=== PATIENT | female | born 1970 | race Caucasian/White ===

== ENCOUNTER 2019-10-06 12:43 | Outpatient (CLI) | payer BC, SELFPAY ==
--- NOTE | ~2019-10-06 | XR_ITS ---
EXAMINATION: XR wrist LT min 3V EXAM DATE: 10/06/2019 13:09 INDICATION: Initial encounter following injury, with pain of the left wrist. TECHNIQUE: Frontal, 2 oblique, lateral projections left wrist. There is no prior study for comparis on. FINDINGS: Acute comminuted closed posttraumatic fracture through the left radial distal metaphysis e xtending into the radiocarpal joint. There is mild volar displacement of the main fracture fragment, carpus. There is overlying soft tissue swelling. The ulnar styloid is intact. Carpal bones unremark able. IMPRESSION: Left radial distal metaphyseal fractures into radiocarpal joint. Mild volar displacement . Reviewed, dictated and finalized at location B. IMPRESSION: Left radial distal metaphyseal fractures into radiocarpal joint. M ild volar displacement.
== END 2019-10-06 12:44 | disposition home or self-care (01) ==
LOC: ANHIMG 12:50
PROVIDERS: PCP Family Medicine; Visit Provider Physician Assistant
DX: S52.502A Unspecified fracture of the lower end of left radius, initial encounter for closed fracture (principal)
CPT/HCPCS: 73110

== ENCOUNTER 2019-10-09 04:16 | Day surgery (SDC) | payer BC, SELFPAY ==
[2019-10-08 09:59] VITALS: BMI 23.6
[2019-10-09] VITALS (10 sets, daily range): BP systolic 106–135; BP diastolic 62–76; PULSE 52–67; RESP 10–18; TEMP 36.2–38; O2SAT 96–100
--- NOTE | ~2019-10-09 | XR_ITS ---
EXAMINATION: XR surgery orthopedic DATE: 10/09/2019 15:35 INDICATION: ORIF left wrist fracture TECHNIQUE: 3 fluoroscopic spot images of the left wrist were obtained during procedure performed by Jenny Ness. Radiologist was not present for the imaging or procedure. The amount of fluoroscopy time used during this procedure was 0.3 minutes. COMPARISON: 10/07/2019 FINDINGS: Interval reduction and internal fixation with volar T plate and screws of a previous noted mildly com minuted fractures of the distal left radius. No definitive intra-articular extension of the fracture. Alignment post fixation appears essentially anatomic. No other fractures identified. Normal joint sp karsten at the left wrist and carpus. IMPRESSION: 1. Essentially anatomic alignment post internal fixation of a comminuted distal left radial fracture. See procedure note for further detail. Reviewed, dictated and finalized at location A.
--- NOTE | 2019-10-09 07:19 | WPDHPUPDATE1 ---
History and Physical Update Update Date/Time: 10/09/19 07:19 History and Physical has been reviewed, including an updated exam of the patient. There are NO changes in the patient's condition. Risks, benefits, and alternatives have been discussed and questions answered. Patient agrees to proceed with procedure.
[2019-10-09] MEDS: IBUPROFEN IV 800 MG/200 ML 800 MG/200 ML BAG 400 MG IVPB (13:30)
[2019-10-09] MEDS: LACTATED RINGERS 1,000 ML 30 ML IV CONT ×2 (13:30→15:53)
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
[2019-10-09] MEDS: ceFAZolin 2 GM/D5W 50 ML 2 GM/50 ML BAG IVPB (14:33)
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
== END 2019-10-09 17:50 | disposition home or self-care (01) ==
PROVIDERS: PCP Family Medicine; Visit Provider Orthopaedic Surgery
PROC: (CPT 25575; principal; 2019-10-09 15:00)
DX: S52.562A Barton's fracture of left radius, initial encounter for closed fracture (principal); V19.9XXA Pedal cyclist (driver) (passenger) injured in unspecified traffic accident, initial encounter
CPT/HCPCS: 25607; A9270; C1713; J0690; J1200; J1741; J2250; J2405; J2704; J3010; J7120

== ENCOUNTER 2024-06-02 15:53 | Outpatient (CLI) | payer BC, SELFPAY ==
--- NOTE | ~2024-06-02 | US_ITS ---
EXAM: Focused ultrasound examination of the soft tissues of the left axilla HISTORY: R22.2 - Localized swelling, mass and lump, trunk TECHNIQUE: Sonographic evaluation of the soft tissues of the left upper back were performed assessing grayscale appearance and color Doppler flow. COMPARISON: Upper back none. FINDINGS: Sonographic evaluation of the soft tissues of the left upper back demonstrate a well-circumscribed fo cus of fat attenuation measuring 7.3 x 1.7 x 10.2 cm, consistent with a lipoma. Sonographic evaluation of the remainder of the soft tissues of the left upper back demonstrate benign fibrofatty and fibromuscular elements without a cystic or solid lesion of concern. IMPRESSION: Lipoma within the region of palpable concern. Reviewed, dictated and finalized at location A. H LEADER
--- OUTSIDE RECORDS SUMMARY | 2024-06-02 18:22 | XMS_ITS | Encounter Summary ---
Author Organization [facility] Address [address] [place] [address] Care Team Providers Care Distribution Systems Superintendent Name Role Phone Joslyn Moreau MD Primary Care Provider [phone] Encounter Details Date Type Department Care Team (Latest Contact Info) Description 12/01/1999 Inpatient Historical HIS PATIENT IN A BED Kristina Peres MD [address] [facility] [address] [place] [address] Other specified indication for care or intervention related to labor and delivery, delivered (Primary Dx) Social History Tobacco Use Types Packs/Day Years Used Date Smoking Tobacco: Never Assessed Comments Unknown Sex and Gender Information Value Date Recorded Sex Assigned at Not on file 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
--- OUTSIDE RECORDS SUMMARY | 2024-06-02 18:22 | XMS_ITS | Encounter Summary ---
Author Organization [facility] Address 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
--- OUTSIDE RECORDS SUMMARY | 2024-06-02 18:22 | XMS_ITS | Clinical Summary ---
Author Organization 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 Gender Identity Not on file Sexual Orientation Not on file Plan of Treatment Health Maintenance Due Date Last Done Comments DTAP/TDAP/TD VACCINES (1 - Tdap) 06/13/1987 HEPATITIS B VACCINES (1 of 3 - 19+ 3-dose series) 06/13/1987 CERVICAL CANCER SCREENING 1998 BREAST CANCER SCREENING 2008 COLORECTAL SCREENING 2013 Colorectal Cancer Screening 2013 FIT-DNA Q 3 years 2013 FIT/FOBT Q 1 year 2013 Flex Sig/CT Colonography Q 5 years 2013 ZOSTER VACCINE (1 of 2) 2018 INFLUENZA VACCINE (#1) 2023 PNEUMOCOCCAL VACCINE 0-64 YEARS Aged Out No longer eligible based on patient's age to complete this topic Insurance BCBS BLUE ACCESS/TRUE BLUE PPO Care Teams Gravity Prospecting Operator Relationship Specialty Start Date End Date Joslyn Moreau MD [address] [place] [address] PCP - General Family Practice 10/29/18
--- OUTSIDE RECORDS SUMMARY | 2024-06-02 18:22 | XMS_ITS | Continuity of Care Document ---
Author Organization [facility] Address [address] [place] [address] Phone Care Team Providers Care Alley Tender Name Role Phone Randall SPENCE, Gloria Unavailable Unavailable Allergies, Adverse Reactions, Alerts Substance Reaction Status Criticality Penicillins Active No Information Medications Medication Instructions Dosage Effective Dates (start - stop) Status Comments Blink eye drops (unknown strength) Not Available - Active ADVIL (unknown strength) take 1 tablet by oral route every 6 hours as needed with food Not Available - Active Zyrtec (unknown strength) Not Available - Active DAILY VITAMIN FORMULA (unknown strength) take 1 tablet by oral route every day with food Not Available - Active Calcium (unknown strength) Not Available - Active Procedures Procedure Date EYE EXAM & TREATMENT REFRACTION Comp cont lens eval EYE EXAM & TREATMENT REFRACTION Comp cont lens eval EYE EXAM & TREATMENT REFRACTION Comp cont lens eval EYE EXAM [facility] REFRACTION Comp cont lens eval EYE EXAM & TREATMENT REFRACTION Comp cont lens eval EYE EXAM & TREATMENT REFRACTION Comp cont lens eval EYE EXAM & TREATMENT REFRACTION Comp cont lens eval EYE EXAM & TREATMENT REFRACTION Comp cont lens eval OFFICE/OUTPATIENT VISIT, EST REFRACTION SPECIAL EYE EXAM, SUBSEQUENT RIGHT EYE J SPECIAL EYE EXAM, SUBSEQUENT LEFT EYE J Comp cont lens eval OFFICE/OUTPATIENT VISIT, EST OFFICE/OUTPATIENT VISIT, EST REFRACTION Comp cont lens eval OFFICE/OUTPATIENT VISIT, EST REFRACTION OFFICE/OUTPATIENT VISIT, EST REFRACTION OFFICE/OUTPATIENT VISIT, EST OFFICE/OUTPATIENT VISIT, EST Advance Directives Directive Yes / No Effective Date File Name No Information Encounters Encounter Description Practice Location Reason(s) For Visit Diagnoses Date Provider Providers Copied on Encounter [facility], [address] [place] [address], [id number], [place] tel:[phone] OPH CONSULT APOLINAR STEPHEN routine exam (chief complaint) Encounter for exam of eyeMyopia, bilateral 4 Randall Castro. [address], [address], [place], [address], [place]. tel:[phone] Referring Provider: Gloria De Jesus, [address], [place], [address]. tel:[phone] [facility], [address] [place] [address], [place], [place], [id number], [place] tel:[phone] [facility] CONSULT APOLINAR STEPHEN Dry Eye (chief complaint) Myopia, bilateralEnco unter for exam of eye 3 Randall Castro. [address], [address], [place], [address], [place]. tel:[phone] Referring Provider: Joslyn Moreau MD S, [address] [place], [address]. tel:[phone] [facility], [address] [place] [address], [place], [place], [id number], [place] tel:[phone] OPH CONSULT APOLINAR STEPHEN dry eyes (chief complaint) Myopia, bilateralEnco unter for exam of eyeKeratoconj unct sicca, not specified as Sjogren's, bilateral David-0 2 Pereira Gloria. [address], [address], [place], [address], [place]. tel:[phone] Referring Provider: Joslyn Moreau MD S, [address] [place], [address]. tel:[phone] [facility], [address] [place] [address], [id number], [place] tel:[phone] [facility] Myopia, bilateralEnco unter for exam of eye Jun- 1 Pereira Gloria. [address], [address], [place], [address], [place]. tel:[phone] Referring Provider: Joslyn Moreau MD S, [address] [place], [address]. tel:[phone] [facility], [address] [place] [address], [id number], [place] tel:[phone] OPH CONSULT APOLINAR STEPHEN myopia (chief complaint)f loaters (chief complaint)d ry eye (chief complaint) Encounter for exam of eyeMyopia, bilateral Sep- 0 Pereira Gloria. [address], [address], [place], [address], [place]. tel:[phone] Referring Provider: Joslyn Moreau MD S, [address] [place], [address]. tel:[phone] [facility], [address] [place] [address], [id number], [place] tel:[phone] OPH CONSULT APOLINAR STEPHEN dryness (chief complaint) Encounter for exam of eyeMyopia, bilateral Sep- 9 Pereira Gloria. [address], [address], [place], [address], [place]. tel:[phone] Referring Provider: Gloria De Jesus, [address], [place], [address]. tel:[phone] [facility], [address] [place] [address], [id number], [place] tel:[phone] OPH CONSULT APOLINAR STEPHEN routine exam (chief complaint) Encounter for exam of eyeMyopia, bilateral Randall Castro. [address], [address], [place], [address], [place]. tel:[phone] Referring Provider: Gloria De Jesus, [address], [place], [address]. tel:[phone] [facility], [address] [place] [address], [id number], [place] tel:[phone] OPH CONSULT APOLINAR STEPHEN myopia (chief complaint) Acute atopic conjunctiviti s, bilateralOthe r vitreous opacities, bilateralOthe r chorioretinal scars, right eyeMyopia, bilateralBila teral keratoconjunc tivitis sicca, not specified as Sjogren's 7 Randall Castro. [address], [address], [place], [address], [place]. tel:[phone] Referring Provider: Gloria De Jesus, [address], [place], [address]. tel:[phone] OFFICE/OUTPA TIENT VISIT, [facility], [address] [place] [address], [id number], [place] tel:[phone] OPH CONSULT APOLINAR STEPHEN blurry reading (chief complaint) Myopia, bilateralAcut e atopic conjunctiviti s, bilateralOthe r vitreous opacities, bilateralOthe r chorioretinal scars, right eye 6 Randall Castro. [address], [address], [place], [address], [place]. tel:[phone] Referring Provider: Gloria De Jesus, [address], [place], [address]. tel:[phone] [facility], [address] [place] [address], [id number], [place] tel:[phone] OPH CONSULT APOLINAR STEPHEN blurry vision (chief complaint) No Information 5 Randall Castro. [address], [address], [place], [address], [place]. tel:[phone] Referring Provider: Gloria De Jesus, [address], [place], [address]. tel:[phone] OFFICE/OUTPA TIENT VISIT, [facility], [address] [place] [address], [id number], [place] tel:[phone] OPH CONSULT APOLINAR STEPHEN pain, redness, mattering (chief complaint) Pain in or around the eye 5 Lesa Baez. [address] [place] [address], [address], [place], [address], [place]. tel:[phone] Referring Provider: Nestor Lu, [address] [place] [address] [address], [place], [address]. tel:[phone] OFFICE/OUTPA TIENT VISIT, [facility], [address] [place] [address], [id number], [place] tel:[phone] Oph Consult [facility] Allergies (chief complaint)V ision doing well without complaints (chief complaint) Allergic conjunctiviti sMyopiaOther vitreous opacities 4 Randall Castro. [address], [address], [place], [address], [place]. tel:[phone] Referring Provider: Gloria De Jesus, [address], [place], [address]. tel:[phone] OFFICE/OUTPA TIENT VISIT, [facility], [address] [place] [address], [id number], [place] tel:[phone] Oph Consult [facility] decreased vision (chief complaint) Allergic conjunctiviti sAllergic conjunctiviti sRegular astigmatismOt her vitreous opacities 3 Randall Castro. [address], [address], [place], [address], [place]. tel:[phone] Referring Provider: Gloria De Jesus, [address], [place], [address]. tel:[phone] OFFICE/OUTPA TIENT VISIT, [facility], [address] [place] [address], [place], [place], [id number], [place] tel:[phone] OPH CONSULT APOLINAR STEPHEN itching (chief complaint) Allergic conjunctiviti sMyopia 2 Randall Castro. [address], [address], [place], [address], [place]. tel:[phone] Referring Provider: Gloria De Jesus, [address], [place], [address]. tel:[phone] OFFICE/OUTPA TIENT VISIT, [facility], [address] [place] [address], [id number], [place] tel:[phone] OPH CONSULT APOLINAR STEPHEN takes time to adjust to contacts when (chief complaint) Allergic conjunctiviti s 1 Cora Pereira. [address], [address], [place], [place], [id number], [place]. tel:[phone] OFFICE/OUTPA TIENT VISIT, [facility], [address] [place] [address], [id number], [place] tel:[phone] OPH CONSULT APOLINAR STEPHEN No Information 0 Cora Pereira. [address], [address], [place], [place], [id number], [place]. tel:[phone] [facility], [address] [place] [address], [place], [id number], [place] tel:[phone] OPH CONSULT APOLINAR STEPHEN No Information 201 0 Cora Pereira. [address], [address], [place], [place], [id number], [place]. tel:[phone] Family History Family Member Type Diagnosis Age At Onset Grandmother Problem (finding) Glaucoma Father Problem Hypertension Father Problem Glaucoma Payers Payer name Insurance type Covered republican ID Maikel grijalva(s) VSP CI [id number] Social History Type Description Quantity Date Captured Comments Alcohol Use Details No Caffeine Use Details 2 cups per day Tobacco Use Status Current non-smoker Smoking Status Never smoker Non-Smoking Tobacco Use Details : No Details Available : No Details Available Sex Female Vital Signs Date / Time: Height Weight BMI Pulse Rate Blood Pressure Temperature Respiratory Rate Body Surface Area Head Circumference BMI percentile Pulse Ox Inhaled Ox 12:48 PM 65.00 in 138.00 lbs 22.9 6 kg/m eter (2) Chief Complaint And Reason For Visit From encounter dated '11/09/2023 13:00'. routine exam (chief complaint). Description: The 53 year old female presents for evaluation of routine VSP examination, PT reports no changes to her VA OU for both distance and near, denies any othersignificant changes to her eyes. PT uses Toric daily CLS. PT also uses progressive glasses alternatively. PT is using Blink OU BID. Plan Of Treatment Date Type Action Status No Information History Of Present Illness Encounter Date Complaint History Of Prese nt Illness routine exam The 53 year old female presents for evaluation of routine VSP examination, PT reports no changes to her VA OU for both distance and near, denies any other significant changes to her eyes. PT uses Toric daily CLS. PT also uses progressive glasses alternatively. PT is using Blink OU BID. Dry Eye The 52 year old female presents for evaluation of Dry Eye. Vision seems stable. Distance and Near vision seems clear. Pt uses +1.50 OTC readers over contacts. Eyes are dry by end of day, takes out contacts. Otherwise eyes are comfortable. OD has 1 floater, notices when she is outside walking. Floater does not effect vision and has stayed consistent in shape, color, and size. Denies FOL, glare, and distortions. Pt is happy with current brand of contacts, My Day Torics. -Pt wants to know if Blink is the best drops for her to use? Using Blink BID OU dry eyes The 51 year old female presents for evaluation of dry eyes. Pt states eyes are still dry, using blink BID Ou. Pt wears daily cls. Pt states no vision changes. Pt wants updated rx. ins. VSP Achy Eyes The 50 year old female presents for evaluation of Achy Eyes in the right eye and left eye. It started about 2 month(s) ago. It affects VA not affected. The symptom is constant. The condition is unstable. Patient states she is having a hard time with her CL. She has been light sensitive, and her eyes just ache. The vision seems ok. No flashes or floaters. Headaches often. floaters The patient is p resent for evaluation of floaters in the right eye. Pt c/o black floaters OD. First noticed this Spring. Denies flashes myopia The 49 year old female presents for evaluation of myopia in the right eye and left eye. It started about 1 year(s) ago. Pt c/o difficulty with near and computer with contacts in but ok with rx glasses. Pt uses +1.50 OTC prn, c/o eye strain even with readers on.monovision - OD distance, OS near. dry eye The patient is p resent for evaluation of dry eye in the right eye and left eye. Pt c/o dryness after wearing contacts all day. Takes contacts out to improve symptoms. Pt does not use any gtts on a regular basis - has Pataday but states she forgets to use often. dryness The 48 year old female presents for evaluation of dryness in the right eye and left eye. It started about 6 month(s) ago. It occurs with no pattern. The condition is moderate. Pt does not use gtts. She removes her CLs when she feels dry and that helps. Pt removes her CLs nightly and replaces them biweekly. routine exam The 47 year old female presents for evaluation of routine exam in the right eye and left eye. Last exam was about 1 year(s) ago. The symptom is constant. The condition is stable. Pt reports vision and comfortable are stable with present cl's. Pt denies any dryness or discomfort OU. Disp q 2 weeks. Current pair a little over 1 week. Solution: complete care myopia The 46 year old female presents for evaluation of myopia in the right eye and left eye. Patient reports vision and ocular comfort are doing well. No flashes or floaters. See CL exam sheet for CL info blurry reading The 45 year old female presents for evaluation of blurry reading in the right eye and left eye. Reading gradually worse over the past year. Problem only with CL. MV CL OD dist, OS near. Progressives-va good OU.Uses pataday occasionally for comfort. Pt is very light sensitiveNeeds updated CL rx. blurry vision The 44 year old female presents for evaluation of blurry vision in the left eye. It started about 2 month(s) ago. It affects near vision. The symptom is frequent. The condition is limiting patient's ability to read. Pt states OS-near is having trouble focusing. Pt is happy with CL, but is needed +1.25 otc over her CL to read. pain, redness, mattering The 44 year old female presents for evaluation of pain, redness, mattering in the left eye. It started about 2 day(s) ago. The symptom is constant. The condition is unstable. States that a bug flew into OS sunday while she had CL in. Flushed OS out for about 10 mins. Used systane Gel last night for comfort. swelling has spread to LLL. D/C CL wear OS, Wearing CL OD only today Instructions Date Instruction Additional Infor mation Impression/Plan Related to Encou nter for exam of eye Impression/Plan Related to Myopi a, bilateral Impression/Plan Related to Myopi a, bilateral Impression/Plan Related to Encou nter for exam of eye Impression/Plan Related to Myopi a, bilateral Impression/Plan Related to Encou nter for exam of eye Impression/Plan Related to Kerat oconjunct sicca, not specified as Sjogren's, bilateral Impression/Plan Related to Myopi a, bilateral Impression/Plan Related to Encou nter for exam of eye Impression/Plan Related to Myopi a, bilateral Impression/Plan Related to Encou nter for exam of eye Impression/Plan Related to Encou nter for exam of eye Impression/Plan Related to Myopi a, bilateral Impression/Plan Related to Encou nter for exam of eye Impression/Plan Related to Myopi a, bilateral Follow up - RTO 1 ye ar for comp exam Related to Bilateral keratoconjunctivitis sicca, not specified as Sjogren's Impression/Plan - co ntinue pataday. will continue to observe. Related to Acute atopic conjunctivitis, bilateral Impression/Plan - Di scussed diagnosis in detail with patient. No treatment is required at this time. Will continue to observe condition and or symptoms. Call if VA worsens or sudden onset of doxens of floaters with flashes of light. Educational materials provided:Flashers/floaters. Related to Other vitreous opacities, bilateral Impression/Plan - St able. Will continue to observe. 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 Change to clearcare. possible solution sensitivity Related to Myopia, bilateral Impression/Plan - Di scussed diagnosis in detail with patient. Discussed treatment options with patient. Patient instructed to use artificial tears as needed. Will continue to observe condition and or symptoms.Change to clearcare for solution. Related to Bilateral keratoconjunctivitis sicca, not specified as Sjogren's Impression/Plan - Mo no vision stable. sees better with progressive. Discussed Duette progressives. Related to Myopia, bilateral Impression/Plan - co ntinue pataday. will continue to observe. Related to Acute atopic conjunctivitis, bilateral Impression/Plan - Di scussed diagnosis in detail with patient. No treatment is required at this time. Will continue to observe condition and or symptoms. Call if VA worsens or sudden onset of doxens of floaters with flashes of light. Educational materials provided:Flashers/floaters. Related to Other vitreous opacities, bilateral Follow up - RTO 1 ye ar for comp exam Impression/Plan - St able. Will continue to observe. 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 Related to Allergic conjunctivitis Allergic conjunctivi tis OU - Patient to continue Lastacaft as needed, will call if needing more. Related to Allergic conjunctivitis Myopia/Presbyopia, O U - trial cls trying mono vision, discussed duette progressive. patient will call to orderOCT readers prn Related to Myopia Other vitreous opaci ties Right - Discussed diagnosis in detail with patient. No treatment is required at this time. Discussed signs and symptoms of retinal detachment. Discussed signs and symptoms of PVD/floaters. Educational materials provided:Flashers/floaters. Related to Other vitreous opacities Allergic conjunctivi tis OU - Pt is currently taking Lastacaft, will call if needing more. Related to Allergic conjunctivitis Compound Myopic Asti gmatism OU - Discussed [place] vision etc - for distance and reading. CL and glasses. Advised pt of condition. Discussed benefits of CL and glass lens. Trials (Toric) given today for bi focals pt to call in 1 week pt may try [place] in future. let's move to toric for now- trials Related to Compound Myopic Astigmatism Other vitreous opaci ties OU - No treatment today. Related to Other vitreous opacities Myopia/Presbyopia, O U - OCT readers prn Related to Myopia - Return in 1 year f or Complete Exam, with Gloria Pereira OD. Related to Allergic Conjunctivitis Allergic Conjunctivi tis, OU - rx for Lastacaft given today. Related to Allergic Conjunctivitis Allergic Conjunctivi tis, OU - Change contact lens solution from Opti Free. Gave pt samples of Clear Care, Complete. Gave pt new rx for Lastacaft. Related to Allergic Conjunctivitis Assessments Type Assessment Date assessment Encounter for exam of eye impression Encounter for exam o f eye: Z01.00 Bilateral.Uses Blink PRN OU- ins did not cover any medication assessment Myopia, bilateral impression Myopia, bilateral: H 52.13. stable- mild mono vision working well so far
--- OUTSIDE RECORDS SUMMARY | 2024-06-02 18:22 | XMS_ITS | Encounter Summary ---
Author Organization [facility] Address 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
== END 2024-06-02 15:54 | disposition home or self-care (01) ==
PROVIDERS: PCP Family Medicine; Visit Provider Student in an Organized Health Care Education/Training Program
DX: D17.1 Benign lipomatous neoplasm of skin and subcutaneous tissue of trunk (principal)
CPT/HCPCS: 76604

== ENCOUNTER 2024-10-29 06:56 | Outpatient (CLI) | payer BC, SELFPAY ==
--- NOTE | ~2024-10-29 | XR_ITS ---
EXAM/ PROCEDURE: [id number] - 10/29/2024 7:17 CDT HISTORY: 54 years old Female with M25.561 - Pain in right knee COMPARISON: None available TECHNIQUE: Three view(s) FINDINGS/ IMPRESSION: There are no fractures or dislocations.Joint space narrowing, subchondral sclerosis, subchondral cyst formation and osteophyte formation, compatible with mild osteoarthritis. Reviewed, dictated and finalized at location A.
== END 2024-10-29 06:57 | disposition home or self-care (01) ==
PROVIDERS: PCP Family Medicine; Visit Provider Student in an Organized Health Care Education/Training Program
DX: M25.561 Pain in right knee (principal)
CPT/HCPCS: 73560

== ENCOUNTER 2024-11-21 16:30 | Emergency (ER) | payer OTHER, BC, SELFPAY ==
--- NOTE | ~2024-11-21 | XR_ITS ---
EXAMINATION: XR shoulder LT min 2V DATE: 11/21/2024 17:13 INDICATION: Child fell on shoulder TECHNIQUE: 4 images of the left shoulder were obtained COMPARISON: None FINDINGS: Bone mineralization is within normal limits. No fracture. No dislocation of the left glenohumeral brett nt. No sclerotic or destructive bone lesions. Mild narrowing of the left acromion clavicular joint. IMPRESSION: 1. No acute fracture or dislocation. If symptoms persist or worsen, consider a short-term follow-up study or additional imaging for furthe r assessment. Reviewed, dictated and finalized at location A. IMPRESSION: 1. No acute fracture or dislocation. If symptoms persist or worsen, consider a short-term follow-up study or additio nal imaging for further assessment.
[2024-11-21 16:56] VITALS: BP 128/73; PULSE 76; RESP 16; TEMP 36.4; O2SAT 100
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
== END 2024-11-21 17:55 | disposition home or self-care (01) ==
PROVIDERS: Emergency Provider Nurse Practitioner; PCP Family Medicine
DX: S46.912A Strain of unspecified muscle, fascia and tendon at shoulder and upper arm level, left arm, initial encounter (principal); W50.0XXA Accidental hit or strike by another person, initial encounter; Y99.0 Civilian activity done for income or pay
CPT/HCPCS: 73030; 99213; G0463